=== PATIENT | female | born 1980 | race Caucasian/White ===

== ENCOUNTER 2020-10-28 15:28 | Outpatient (CLI) | payer MEDICAID ==
[2020-10-28 18:08] LABS: BASOPHILS # (AUTO) 0.1 10^3/uL (0.0-0.1); BASOPHILS % (AUTO) 0.6 %; EOSINOPHILS # (AUTO) 0.1 10^3/uL (0.0-0.7); EOSINOPHILS % (AUTO) 1.3 %; HCT - HEMATOCRIT 41.1 % (37.0-47.0); HGB - HEMOGLOBIN 13.3 g/dL (12.0-16.0); LYMPHOCYTES # (AUTO) 2.7 10^3/uL (1.5-3.5); LYMPHOCYTES % (AUTO) 32.2 %; MEAN CORPUSCULAR HEMOGLOBIN 27.5 pg (27.0-31.0); MEAN CORPUSCULAR HGB CONC 32.4 g/dL (32.0-36.0); MEAN CORPUSCULAR VOLUME 85.1 fL (81.0-99.0); MEAN PLATELET VOLUME 11.2 fL (7.9-10.8); MONOCYTES # (AUTO) 0.5 10^3/uL (0.0-1.0); MONOCYTES % (AUTO) 5.4 %; NEUTROPHILS # (AUTO) 5.1 10^3/uL (1.5-6.6); NEUTROPHILS % (AUTO) 60.3 %; PLT - PLATELET COUNT 302 10^3/uL (130-450); RED BLOOD COUNT 4.83 10^6/uL (4.20-5.40); RED CELL DISTRIBUTION WIDTH 13.7 % (12.0-15.0); WHITE BLOOD COUNT 8.5 x10^3/uL (4.8-10.8)
[2020-10-28 18:35] LABS: THYROID STIMULATING HORMONE 1.32 uIU/mL (0.34-5.60)
[2020-10-28 18:36] LABS: ALBUMIN 4.1 g/dL (3.2-5.5); ALBUMIN/GLOBULIN RATIO 1.1 (1.0-2.2); ALKALINE PHOSPHATASE 58 IU/L (42-121); ALT ALANINE AMINOTRANSFERASE 14 IU/L (10-60); AST ASPARTATE AMINOTRANSFERASE 14 IU/L (10-42); BILIRUBIN,TOTAL 0.4 mg/dL (0.2-1.0); BUN - BLOOD UREA NITROGEN 11 mg/dL (6-20); CALCIUM 9.1 mg/dL (8.5-10.3); CARBON DIOXIDE - CO2 24 mmol/L (21-32); CHLORIDE 104 mmol/L (101-111); CHOL/HDL RATIO 3.3 (<4.4); CHOLESTEROL 175 mg/dL; CREATININE 0.8 mg/dL (0.4-1.0); GFR - MDRD 80 (>89); GLUCOSE 91 mg/dL (70-100); HDL CHOLESTEROL 53 mg/dL; LDL CHOLESTEROL,CALCULATED 107 mg/dL; SODIUM 136 mmol/L (135-145); TRIGLYCERIDES 73 mg/dL; VLDL CHOLESTEROL 15 mg/dL
== END 2020-10-28 23:59 | disposition home or self-care (01) ==
LOC: LAB.WCP 15:28
PROVIDERS: ATTEND Nurse Practitioner Family
DX: Z00.00 Encounter for general adult medical examination without abnormal findings (principal)
CPT/HCPCS: 36415; 80053; 80061; 83721; 84443; 85025

== ENCOUNTER 2021-01-16 14:16 | Outpatient (CLI) | payer MEDICAID ==
--- NOTE | 2021-01-24 12:18 | Mammography Report ---
BILATERAL DIGITAL SCREENING MAMMOGRAM 3D/2D: 01/16/2021 CLINICAL: Baseline exam. Routine screening. No prior exams were available for comparison. There are scattered fibroglandular elements in both br easts. There is an irregular equal density asymmetry with an indistinct margin in the right breast posterior depth superior region seen on the mediolateral oblique view only. There is possible architectural d istortion associated with the asymmetry. There is an oval equal density asymmetry with an indistinct and circumscribed margin in the left rosa st at 6 o'clock anterior depth. No other significant masses or calcifications are seen in either breast. IMPRESSION: INCOMPLETE: NEEDS ADDITIONAL IMAGING EVALUATION The irregular equal density asymmetry in the right breast posterior depth superior region seen on the mediolateral oblique view only is indeterminate. Mediolateral and spot compression views as well as additional views with possible ultrasound are recommended. The oval equal density asymmetry in the left breast at 6 o'clock anterior depth is indeterminate. Me diolateral and spot compression views as well as additional views with possible ultrasound are recomm ended. This exam was interpreted at Station ID: [id number]. NOTE: For mammograms, a report in lay terms will be sent to the patient. Approximately 15% of breast malignancies will not be visualized mammographically. In the management of a palpable breast mass, a negative mammogram must not discourage biopsy of a clinically suspicious lesion. Electronically Signed By: Pancho Bradford M.D. ddp/:01/23/2021 09:33:56 ACR BI-RADS Category 0: Incomplete 3340F PARENCHYMAL PATTERN: (A) - The breast(s) demonstrate(s) scattered fibroglandular densities. BI-RADS CATEGORY: (0) - 0 Mammo and US [id number] Immediate follow-up LATERALITY: (B)
== END 2021-01-16 14:17 | disposition home or self-care (01) ==
LOC: DI.N 14:16
DX: Z12.31 Encounter for screening mammogram for malignant neoplasm of breast (principal); N64.89 Other specified disorders of breast

== ENCOUNTER 2021-02-10 10:48 | Outpatient (CLI) | payer MEDICAID ==
--- NOTE | 2021-02-14 08:36 | Ultrasound Report ---
LIMITED ULTRASOUND OF LEFT BREAST: 02/10/2021 CLINICAL: Short term follow up of the left breast. Comparison is made to exams dated: 11/11/2012 ultrasound - [facility], 02/10/2021 mammogram, 01/17/20 21 mammogram - [facility], and 11/11/2012 mammogram - [facility]. Color flow and real-time ultrasound of the left breast 5 o'clock region were performed. Mckenna scale images of the real-time examination were reviewed. There is a benign 2.3 cm area of fibrocystic tissue in the left breast at 5 o'clock anterior depth 6 cm from the nipple. This area of fibrocystic tissue is of mixed echogenicity. This correlates with mammography findings. IMPRESSION: BENIGN There is no sonographic evidence of malignancy. The 2.3 cm area of fibrocystic tissue in the left breast is benign. A 1 year screening mammogram is recommended. This exam was interpreted at Station ID: [id number]. Electronically Signed By: Benjamin jon/josselin:02/10/2021 14:08:40 Ultrasound BI-RADS: 2 Benign BI-RADS CATEGORY: (2) - 2 RECOMMENDATION: (ANNUAL) - Recommend routine annual screening mammography. [id number] 1 year screening LATERALITY: (B)
--- NOTE | 2021-02-14 08:36 | Mammography Report ---
BILATERAL DIGITAL DIAGNOSTIC MAMMOGRAM 3D/2D: 02/10/2021 CLINICAL: Patient returns today to evaluate a focal asymmetry in the left breast. Patient returns tod ay to evaluate asymmetries in bilateral breasts. Comparison is made to exams dated: 01/16/2021 mammogram - [facility], 11/11/2012 mamm ogram, and 11/11/2012 ultrasound - [facility]. There are scattered fibroglandular elements in both breasts. There is a benign equal density asymmetry in the right breast posterior depth superior region seen on the mediolateral oblique view only. This abnormality partially disperses on spot compression image s, and appears stable when compared to the prior mammogram from 11/11/2012. Findings are most compatibl e with benign fibroglandular tissue. There is an oval equal density asymmetry with an obscured and circumscribed margin in the left breast at 6 o'clock anterior depth. This is seen in additional views. This abnormality does not appear s ignificantly changed when compared to the prior mammogram from 11/11/2012. No other significant masses or calcifications are seen in either breast. IMPRESSION: INCOMPLETE: NEEDS ADDITIONAL IMAGING EVALUATION The oval equal density asymmetry in the left breast at 6 o'clock anterior depth is indeterminate. An ultrasound is recommended. This exam was interpreted at Station ID: [id number]. NOTE: For mammograms, a report in lay terms will be sent to the patient. Approximately 15% of breast malignancies will not be visualized mammographically. In the management of a palpable breast mass, a negative mammogram must not discourage biopsy of a clinically suspicious lesion. Electronically Signed By: Benjamin jon/josselin:02/10/2021 13:58:27 ACR BI-RADS Category 0: Incomplete 3340F PARENCHYMAL PATTERN: (A) - The breast(s) demonstrate(s) scattered fibroglandular densities. BI-RADS CATEGORY: (0) - 0 Ultrasound [id number] Immediate follow-up LATERALITY: (L)
== END 2021-02-10 10:49 | disposition home or self-care (01) ==
LOC: DI 10:48
PROVIDERS: ATTEND Nurse Practitioner Family
DX: N60.12 Diffuse cystic mastopathy of left breast (principal)

== ENCOUNTER 2021-11-17 08:00 | Outpatient (CLI) | payer MEDICAID | END 2021-11-17 23:59 | disposition home or self-care (01) | LOC: LAB.N 08:00 | PROVIDERS: ATTEND Physician Assistant | DX: R05.9 Cough, unspecified (principal); Z20.822 Contact with and (suspected) exposure to COVID-19 ==

== ENCOUNTER 2023-02-07 13:48 | Outpatient (CLI) | payer MEDICAID ==
--- NOTE | 2023-02-07 21:09 | XRAY Report ---
PROCEDURE: Toe(s) RT INDICATIONS: STRAIN OF LESSER RIGHT TOE. TECHNIQUE: 3 views of the fifth toe(s) acquired. COMPARISON: None FINDINGS: Bones: There is fusion at fifth distal interphalangeal joint. Irregularity involving dorsal cortex of fifth middle phalangeal base consistent with a minimally displaced fracture in this area. No other fracture or dislocation. No suspicious bony lesions. Soft tissues: No suspicious soft tissue densities. IMPRESSION: Suggestion of acute minimally displaced fracture involving dorsal aspect of fifth middle phalangeal b ase Reviewed by: Lamberto Patel MD on 02/07/2023 9:08 PM PDT Approved by: Lamberto Patel MD on 02/07/2023 9:08 PM PDT Station ID: [id number]
== END 2023-02-07 13:49 | disposition home or self-care (01) ==
LOC: DI.N 13:48
PROVIDERS: ATTEND Family Medicine
DX: S93.504A Unspecified sprain of right lesser toe(s), initial encounter (principal)

== ENCOUNTER 2024-02-29 16:02 | Outpatient (CLI) | payer MEDICAID | END 2024-02-29 23:59 | disposition EMS.NT | LOC: EMS 16:02 | DX: R42 Dizziness and giddiness (principal) ==

== ENCOUNTER 2024-02-29 17:06 | Outpatient (CLI) | payer MEDICAID | END 2024-02-29 23:59 | disposition critical access hospital (66) | LOC: EMS 17:06 | DX: R07.89 Other chest pain (principal); R55 Syncope and collapse; R00.0 Tachycardia, unspecified; R11.2 Nausea with vomiting, unspecified | CPT/HCPCS: A0425; A0427; A0999 ==

== ENCOUNTER 2024-02-29 17:26 | Emergency (ER) | payer MEDICAID ==
[2024-02-29 17:59] LABS: BASOPHILS # (AUTO) 0.1 10^3/uL (0.0-0.1); BASOPHILS % (AUTO) 0.4 %; EOSINOPHILS # (AUTO) 0.1 10^3/uL (0.0-0.7); EOSINOPHILS % (AUTO) 0.9 %; HCT - HEMATOCRIT 37.6 % (37.0-47.0); HGB - HEMOGLOBIN 12.2 g/dL (12.0-16.0); LYMPHOCYTES # (AUTO) 2.2 10^3/uL (1.5-3.5); LYMPHOCYTES % (AUTO) 17.5 %; MEAN CORPUSCULAR HEMOGLOBIN 27.5 pg (27.0-31.0); MEAN CORPUSCULAR HGB CONC 32.4 g/dL (32.0-36.0); MEAN CORPUSCULAR VOLUME 84.9 fL (81.0-99.0); MEAN PLATELET VOLUME 10.1 fL (7.9-10.8); MONOCYTES # (AUTO) 0.5 10^3/uL (0.0-1.0); MONOCYTES % (AUTO) 4.1 %; NEUTROPHILS # (AUTO) 9.5 10^3/uL (1.5-6.6); NEUTROPHILS % (AUTO) 76.7 %; PLT - PLATELET COUNT 272 10^3/uL (130-450); RED BLOOD COUNT 4.43 10^6/uL (4.20-5.40); RED CELL DISTRIBUTION WIDTH 13.4 % (12.0-15.0); WHITE BLOOD COUNT 12.3 x10^3/uL (4.8-10.8)
--- NOTE | 2024-02-29 18:14 | ED Physician Documentation ---
History of Present Illness - Stated complaint Stated Complaint: CHEST PRESSURE - Chief complaint Chief Complaint: Cardiac - History obtained from History obtained from: Patient - History of Present Illness Timing: Today Pain level max: 2 Pain level now: 0 - Additonal information Additional information: 44-year-old female states that she had a few seconds of substernal chest pain yesterday and the symptoms recurred today for about a minute. Nonradiating. Avis lightheaded and mildly dizzy. No abdominal pain, nausea, vomiting. No sweating. Has not had any cardiac issues in the past. No recent travel. No leg swelling. No calf tenderness. No history of blood clots. Asymptomatic currently. Review of Systems Constitutional: denies: Fever, Chills Respiratory: denies: Cough GI: denies: Vomiting, Diarrhea Skin: denies: Rash Musculoskeletal: denies: Neck pain, Back pain Neurologic: denies: Headache PD PAST MEDICAL HISTORY - Past Medical History Past Medical History: No - Past Surgical History Past Surgical History: No - Allergies Allergies/Adverse Reactions: Allergies Allergy/AdvReac Type Severity Reaction Status Date / Time Penicillins Allergy Unknown Verified 02/29/24 17:33 - Social History Does the pt smoke?: No Smoking Status: Never smoker Does the pt drink ETOH?: No Does the pt have substance abuse?: No - Immunizations Immunizations are current?: Yes PD ED PE NORMAL - Vitals Vital signs reviewed: Yes - General General: Alert and oriented X 3, No acute distress - HEENT HEENT: Moist mucous membranes - Neck Neck: Supple, no meningeal sign - Cardiac Cardiac: RRR, Strong equal pulses - Respiratory Respiratory: No respiratory distress, Clear bilaterally - Abdomen Abdomen: Soft, Non tender, Non distended - Derm Derm: Warm and dry - Extremities Extremities: No edema, No calf tenderness / cord - Neuro Neuro: Alert and oriented X 3 Results - Vitals Vitals: Vital Signs - 24 hr 02/29/24 02/29/24 02/29/24 17:33 18:06 19:31 Temperature 36.5 C 36.5 C Heart Rate 68 100 68 Respiratory 16 16 16 Rate Blood Pressure 109/84 H 109/68 108/68 O2 Saturation 98 99 100 Oxygen O2 Source Room air - EKG (time done) 1754 EKG releavant findings:: EKG personally interpreted by author of this note. Relevant findings are: Rate: Rate (enter#) (70) Rhythm: NSR Elkins: Normal Intervals: Normal [place] QRS: Normal Ischemia: Normal ST segments - Labs Labs: Laboratory Tests 02/29/24 02/29/24 17:56 17:56 WBC 12.3 H RBC 4.43 Hgb 12.2 Hct 37.6 MCV 84.9 MCH 27.5 MCHC 32.4 RDW 13.4 Plt Count 272 MPV 10.1 Neut # (Auto) 9.5 H Lymph # (Auto) 2.2 Pratt # (Auto) 0.5 Eos # (Auto) 0.1 Baso # (Auto) 0.1 Absolute Nucleated RBC 0.00 Nucleated RBC % 0.0 Sodium 136 Potassium 3.6 Chloride 104 Carbon Dioxide 25 Anion Gap 7.0 BUN 9 Creatinine 0.7 Estimated GFR (MDRD) 91 Glucose 102 Calcium 9.3 Total Bilirubin 0.4 AST 19 ALT 23 Alkaline Phosphatase 54 Troponin I High Sens < 2.3 L Total Protein 6.8 Albumin 4.1 Globulin 2.7 Albumin/Globulin Ratio 1.5 Lipase 30 - Rads (name of study) cxr Relevant Findings:: Final report received, See rad report PD Medical Decision Making - ED course Complexity details: reviewed results, re-evaluated patient, considered differential, d/w patient ED course: No acute findings on chest x-ray, EKG, lab Willard testing. No arrhythmias on telemetry. Patient with atypical chest pain. Lasting for couple seconds, up to a minute, she states that she feels like her heart does have flipped during this time as well, possible PVCs? She does not have any evidence of PE, ACS. Will have the patient follow-up with her PCP for further care. Asymptomatic here. Patient counseled regarding signs and symptoms for which I believe and urgent re-evaluation would be necessary. Patient with good understanding of and agreement to plan and is comfortable going home at this time This document was made in part using voice recognition software. While efforts are made to proofread this document, sound alike and grammatical errors may occur. Departure - Departure Disposition: 01 Home, Self Care Clinical Impression: Atypical chest pain Condition: Good Instructions: ED Chest Pain Atypical Unkn Cause Follow-Up: HUNTER CROOKS PA [Primary Care Provider] - Comments: Please follow-up with your primary care fighter for further care. Your testing is normal here today. Your EKG, chest x-ray and laboratory testing did not show any acute abnormalities. I would discuss with your doctor a Zio patch or Holter monitor to evaluate for any arrhythmias. It is possible you are having premature ventricular contractions on the bottom of your heart beats before the top of your heart beats causing pain Forms: PCP List Discharge Date/Time: 02/29/24 19:31
[2024-02-29 18:26] LABS: ALBUMIN 4.1 g/dL (3.2-5.5); ALBUMIN/GLOBULIN RATIO 1.5 (1.0-2.2); ALKALINE PHOSPHATASE 54 IU/L (42-121); ALT ALANINE AMINOTRANSFERASE 23 IU/L (10-60); AST ASPARTATE AMINOTRANSFERASE 19 IU/L (10-42); BILIRUBIN,TOTAL 0.4 mg/dL (0.2-1.0); BUN - BLOOD UREA NITROGEN 9 mg/dL (6-20); CALCIUM 9.3 mg/dL (8.5-10.3); CARBON DIOXIDE - CO2 25 mmol/L (21-32); CHLORIDE 104 mmol/L (101-111); CREATININE 0.7 mg/dL (0.6-1.3); GFR - MDRD 91 (>89); GLUCOSE 102 mg/dL (74-104); LIPASE 30 U/L (11-82); POTASSIUM 3.6 mmol/L (3.5-4.5); SODIUM 136 mmol/L (135-145); TOTAL PROTEIN 6.8 g/dL (6.4-8.9)
[2024-02-29 18:28] LABS: TROPONIN I HIGH SENSITIVITY < 2.3 ng/L (2.3-14.8)
--- NOTE | 2024-02-29 18:54 | XRAY Report ---
PROCEDURE: Chest 1V INDICATIONS: Chest Pain TECHNIQUE: One view of the chest was acquired. COMPARISON: None. FINDINGS: Surgical changes and devices: None. Lungs and pleura: No pleural effusions or pneumothorax. Lungs are clear. Mediastinum: Mediastinal contours appear normal. Heart size is normal. Bones and chest wall: No suspicious bony lesions. Overlying soft tissues appear unremarkable. IMPRESSION: No acute cardiopulmonary process. Reviewed by: Laura Minor MD, PhD on 02/29/2024 5:52 PM ARELIS Approved by: Laura Minor MD, PhD on 02/29/2024 5:52 PM AKDT Station ID: [id number]
[2024-02-29 19:44] VITALS: BP 108/68; O2SAT 100
== END 2024-02-29 19:31 | disposition home or self-care (01) ==
LOC: EDUNIT# → ED 17:26
DX: R07.89 Other chest pain (principal)
CPT/HCPCS: 36415; 80053; 83690; 84484; 85025; 93005; 99283; 99284